=== PATIENT | male | born 1995 | race Caucasian/White ===

== ENCOUNTER 2020-07-03 10:22 | Emergency (ER) | payer OTHER ==
[~2020-07-03] VITALS: Ht 175.3 cm; Wt 82.7 kg
[2020-07-03 10:36] VITALS: BP 122/77
[2020-07-03] MEDS ORDERED: LIDOCAINE-MPF 1%, 5ML INFIL ONE (11:00)
[2020-07-03] MEDS ORDERED: LIDOCAINE-MPF 1%, 5ML ONE (13:13)
== END 2020-07-03 14:07 | disposition home or self-care (01) ==
LOC: ED 14:03
DX: S61.101A Unspecified open wound of right thumb with damage to nail, initial encounter (principal); W23.0XXA Caught, crushed, jammed, or pinched between moving objects, initial encounter; Y93.89 Activity, other specified; Y92.89 Other specified places as the place of occurrence of the external cause; Y99.0 Civilian activity done for income or pay
CPT/HCPCS: 11730; 99284